=== PATIENT | female | born 2000 | race Native Hawaiian/Other Pacific Islander ===

== ENCOUNTER 2023-03-22 16:07 | Emergency (ER) | payer BC, SELFPAY ==
[2023-03-22 16:16] VITALS: BP 114/76; PULSE 110; RESP 16; TEMP 36.7; O2SAT 99; BMI 31.8
--- NOTE | 2023-03-22 16:31 | W.ED.FALL ---
HPI - Fall General: Chief Complaint: Fall Stated Complaint: Fall Time Seen by Provider: 03/22/23 16:28 Source: patient Mode of arrival: ambulatory History of Present Illness: 22-year-old female presents emergency room complaining of right hip and coccyx pain. She fell on the steps a few days ago still having discomfort. Especially when she is ambulating. Not strike her head no loss conscious denies any other injuries MD complaint: fall Onset (ago): day(s) Fall from: standing Fall witnessed: yes, by family Place fall occurred: home Prolonged down time: no Context: tripped/slipped Location of injury: pelvis Associated symptoms-after fall: Reports difficulty walking; Denies abdominal pain, chest pain, confusion, headache(s), hematuria, lightheadedness, neck pain, numbness, short of breath, vertigo or weakness Review of Systems Const: Denies: fever(s) or chills Card: Denies: chest pain or lightheadedness Resp: Denies: dyspnea GI: Denies: abdominal pain : Denies: hematuria Musc: Denies: neck pain Skin/Breast: Denies: rash Neuro: Reports: difficulty walking; Denies: headache(s), vertigo or confusion Physical Exam Const: COMMON NORMALS: no acute distress GENERAL APPEARANCE: cooperative and comfortable ORIENTATION/CONSCIOUSNESS: Yes awake, Yes oriented to person, Yes oriented to place and Yes oriented to time HENMT: COMMON NORMALS: normocephalic, atraumatic and hearing grossly normal bilaterally HEAD & SCALP: normocephalic and atraumatic Resp: COMMON NORMALS: normal respiratory effort, No retractions, No use of accessory muscles and clear to auscultation bilaterally AUSCULTATION: clear to auscultation bilaterally Cardio: COMMON NORMALS: regular rate, regular rhythm and No murmurs present (Cardio) RATE: regular rate RHYTHM: regular rhythm GI: COMMON NORMALS: Soft to palpation and No hepatosplenomegaly present AUSCULTATION: Yes normoactive bowel sounds PALPATION: Yes Soft to palpation, No Tenderness to palpation present (GI), No Guarding due to palpation present (GI) and Yes No hepatosplenomegaly present Extremity: COMMON NORMALS: normal to inspection, capillary refill normal, no clubbing, cyanosis or edema, no calf tenderness and no pedal edema Neuro: SENSORIUM/ORIENTATION: Yes oriented to person, Yes oriented to place and Yes oriented to time Skin: COMMON NORMALS: no rashes or lesions noted GENERAL SKIN EXAM: no rashes or lesions noted Course Vital Signs: Vital signs: Vital Signs Temperature 98.1 F 03/22/23 16:16 Pulse Rate 110 H 03/22/23 16:16 Respiratory Rate 16 03/22/23 16:16 Blood Pressure 114/76 03/22/23 16:16 Pulse Oximetry 98 03/22/23 16:39 Oxygen Delivery Me thod Room Air 03/22/23 16:39 MDM - Fall Medical Decision Making No acute fractures on x-rays anti-inflammatories as needed prescription given for diclofenac follow-up with primary care if not improving. Medical Records I reviewed the patient's medical records. Lab Data I reviewed the patient's lab results. Radiology Impressions Hip/Pelvis X-Ray 03/22/23 16:45 IMPRESSION: No acute fracture. MRI of the pelvis would be recommended if clinical concern for fracture persists. Sacrum and Coccyx X-Ray 03/22/23 16:45 IMPRESSION: No acute fracture. CT scan of the sacrum/coccyx would be recommended if clinical concern for fracture persists. All radiology interpretation(s) finalized by discharge Discharge Plan Discharge Patient Disposition: Home Clinical Impression: Acute pain of right hip, Fall Condition: Stable Prescriptions: New diclofenac sodium 75 mg tablet,delayed release (DR/EC) 75 mg PO Q12H PRN (Reason: pain) Qty: 20 0RF Discharge Orders: Discharge ED (Routine); Ordered 03/22/23 Ordered By: Abraham Mary Discharge Diet: Usual diet Discharge Activity: Resume usual activity Patient Instructions: Opioid Safety, Pain Management Activity Restrictions/Additional Instructions: Thank you for choosing [facility] for your healthcare needs today. Please realize this is an emergency room and that we are providing you with a medical screening exam and this may not be complete and all inclusive of all the testing and or work up that you may need to determine your ailment or severity of your illness. It is very important that you follow up as instructed or that you return to the Emergency Department should you have concerns or if your condition changes or worsens in any way. You are seen today for hip pain buttock pain after a fall no acute fractures on the x-ray discomfort is most likely due to soft tissue injury and bruising. You can use diclofenac or ice as needed follow-up with your primary care doctor if not improving Coding Level of Care Code ED [employer] for [employer]
[2023-03-22 16:39] VITALS: O2SAT 98
--- NOTE | 2023-03-22 16:45 | XRR_ITS ---
PROCEDURE INFORMATION: Exam: XR Right Hip Exam date and time: 03/22/2023 5:06 PM Age: 22 years old Clinical indication: Injury or trauma; Fall; Blunt trauma (contusions or hematomas); Right; Hip TECHNIQUE: Imaging protocol: Radiologic exam of the right hip. Views: 1 view hip with pelvis when performed. COMPARISON: No relevant prior studies available. FINDINGS: Bones/joints: No acute fracture. No dislocation. Normal bone mineralization. No joint effusion. Joint spaces are maintained. Soft tissues: No soft tissue swelling. No radiopaque foreign body. XR/XR hip RT 2-3V wo/w pel* [id number] IMPRESSION: No acute fracture. MRI of the pelvis would be recommended if clinical concern for fracture persists.
--- NOTE | 2023-03-22 16:45 | XRR_ITS ---
PROCEDURE INFORMATION: Exam: XR Sacrum and Coccyx, 2 or More Views Exam date and time: 03/22/2023 5:09 PM Age: 22 years old Clinical indication: Injury or trauma; Fall; Blunt trauma (contusions or hematomas) TECHNIQUE: Imaging protocol: XR of the sacrum and coccyx, 2 or more views. COMPARISON: CR (PELVIS, ) 03/22/2023 5:06 PM FINDINGS: Bones/joints: )No acute fracture. No dislocation. Normal bone mineralization. No joint effusion. Joint spaces are maintained. Soft tissues: No soft tissue swelling. No radiopaque foreign body. XR/XR sacrum coccyx min 2V [id number] IMPRESSION: No acute fracture. CT scan of the sacrum/coccyx would be recommended if clinical concern for fracture persists.
== END 2023-03-22 18:10 | disposition home or self-care (01) ==
PROVIDERS: Emergency Provider Family Medicine
DX: M25.551 Pain in right hip (principal); W10.8XXA Fall (on) (from) other stairs and steps, initial encounter
CPT/HCPCS: 72220; 73502; 99284